=== PATIENT | male | born 1980 | race Caucasian/White ===

== ENCOUNTER 2019-01-22 08:31 | Emergency (ER) | payer OTHER ==
[~2019-01-22] VITALS: Ht 177.8 cm; Wt 79.4 kg
[~2019-01-22 08:31] MED LIST: XANAX 1 MG TABLE1 MG PO; XANAX XR1 MG PO
[2019-01-22 08:33] VITALS: BP 148/86
[2019-01-22] MEDS ORDERED: PENICILLIN V P500 MG PO (08:45)
[2019-01-22] MEDS ORDERED: IBUPROFEN 400400 M2 PO (08:45)
== END 2019-01-22 08:50 | disposition home or self-care (01) ==
LOC: ER 08:31
DX: K08.89 Other specified disorders of teeth and supporting structures (principal); Z88.5 Allergy status to narcotic agent